=== PATIENT | female | born 1985 | race Two or more races ===

== ENCOUNTER 2018-12-13 16:03 | Emergency (ER) | payer MEDICAID ==
[~2018-12-13] VITALS: Ht 165.1 cm; Wt 59.0 kg
--- NOTE | 2018-12-13 16:39 | NUR ---
ED Nurse Note: Patient walked in c/o left ear pain x 2 weeks rates at 10/10. Pt also reports tinnitus. per pt she had ear surgery 4 years. But has total of 3 ear surgeries
[2018-12-13 16:46] VITALS: BP 149/86
--- NOTE | 2018-12-13 17:11 | Emergency Room Report ---
History of Present Illness General Chief Complaint: Earache Source: Patient Present Illness HPI 33-year-old female presents to the emergency department complaining of 10 out of 10 in severity pain to the left ear that has been progressive over the course of 2 weeks however significant progression of the last 2 days. 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 Patient states that typically she wears her plugged in the shower however lately she hasn't. She denies fevers or chills. Patient reports some dizziness that she describes as imbalance as well as nausea and some ringing in the left ear. Patient denies vertigo or vomiting. she reports external ear tenderness, denies tenderness, pain or warmth behind the affected ear. Denies recent head injury or recent travel. Denies BAIRD or neck pain/stiffness. pt reports some rining in the ear. Allergies: Coded Allergies: No Known Allergies (Unverified , 12/13/18) Patient History Past Medical History: see triage record Past Surgical History: none, other - 4 left ear surgeries, TM removed, Pertinent Family History: none Last Menstrual Period: 10/2018 Now: No - unknown : 3 Para: 2 Nursing Documentation-[facility] Past Medical History: No Stated History Review of Systems All Other Systems: negative except mentioned in HPI Physical Exam Vital Signs Date Time Temp Pulse Resp B/P (MAP) Pulse Ox O2 Delivery O2 Flow Rate FiO2 12/13/18 16:29 99.7 111 18 149/86 99 Sp02 EP Interpretation: reviewed, normal General Appearance: alert, GCS 15, non-toxic, moderate distress Head: normocephalic, atraumatic Eyes: bilateral eye normal inspection, bilateral eye PERRL ENT: hearing grossly normal, normal pharynx, normal voice, other - LEft ear canal is swollen , erythematous and has macerated appearance. no D/c noted, TM not visualized. no mastoid process ttp, erythema or warmth. external ear tenderness with tugging. Right TM and canal are WNL Neck: full range of motion, no meningismus Respiratory: lungs clear, normal breath sounds, speaking full sentences Cardiovascular #1: regular rate, rhythm, tachycardia Genitourinary: normal inspection Musculoskeletal: back normal, gait/station normal, normal range of motion, non- tender Neurologic: alert, oriented x3, responsive, motor strength/tone normal, sensory intact, normal gait, speech normal, other - no nystagmus, cannot illicit dizziness, grossly normal Psychiatric: judgement/insight normal Skin: normal color, no rash, warm/dry, well hydrated Lymphatic: no adenopathy Medical Decision Making PA Attestation Dr. Kowalski is my supervising Physician whom patient management has been discussed with. Diagnostic Impression: Primary Impression: Otitis externa Qualified Codes: H60.502 - Unspecified acute noninfective otitis externa, left ear ER Course 33-year-old female presents to the emergency department complaining of 10 out of 10 in severity pain to the left ear that has been progressive over the course of 2 weeks however significant progression of the last 2 days. 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 Patient states that typically she wears her plugged in the shower however lately she hasn't. She denies fevers or chills. Patient reports some dizziness that she describes as imbalance as well as nausea and some ringing in the left ear. Patient denies vertigo or vomiting. she reports external ear tenderness, denies tenderness, pain or warmth behind the affected ear. Denies recent head injury or recent travel. Denies BAIRD or neck pain/stiffness. pt reports some rining in the ear. Ddx considered but are not limited to OM, OE, mastoiditis, TM perforation, FB, Inner ear infection/ inflammation just to name a few. Vital signs: are WNL, pt. is afebrile, mild tachycardia most likely secondary to pain. pt. appears very uncomfortable. H&PE are most consistent with otitis externa ORDERS: none required at this time, the diagnosis is clinical -OTOSCOPY: Left ear canal is swollen , erythematous and has macerated appearance. no D/c noted, TM not visualized. no mastoid process ttp, erythema or warmth. external ear tenderness with tugging. Right TM and canal are WNL ED INTERVENTIONS: - Tylenol #3 po -Zofran PO D/W this patient as she has history of not having his tympanic membrane in the left ear that she will be prescribed a very specific type of antibiotic eardrops that are known to not have any ototoxicity. When I discussed the name of the eardrops patient stated that it sounds familiar and that she has had them before in the past and the of worked well. Also discussed with this patient the importance of follow-up specifically within ears nose and throat specialist as this is a chronic condition that she has recurrent issues with. DISCHARGE: At this time pt. is stable for d/c to home. With Otic ABX. Will provide printed patient care instructions, and any necessary prescriptions. Care plan and follow up instructions have been discussed with the patient prior to discharge. Last Vital Signs Date Time Temp Pulse Resp B/P (MAP) Pulse Ox O2 Delivery O2 Flow Rate FiO2 12/13/18 16:46 99.7 111 18 149/86 99 Disposition: HOME, SELF-CARE Condition: Stable Scripts Ondansetron Odt* (ZOFRAN ODT*) 4 Mg Tab.rapdis 4 MG BC EVERY 8 HOURS, #9 TAB 0 Refills Prov: Ratna Hill 12/13/18 Acetaminophen With Codeine (T#3) (TYLENOL #3 TAB*) Y Tab 1 TAB ORAL Q6HR PRN for For Pain, #8 TAB Prov: Ratna Hill 12/13/18 Ciprofloxacin Hcl/Dexameth (CIPRODEX OTIC SUSPENSION) 7.5 Ml Drops.susp 4 DROP LEFT EAR TWICE A DAY for 10 Days, #7.5 ML Prov: Ratna Hill 12/13/18 Patient Instructions: Otitis Externa, Cocp-lo-Hsus Additional Instructions: Take medications as directed. Follow up with a Primary Care Provider in 3-5 days For ENT Specialist Referral, even if your symptoms have resolved. --Please review list of primary care clinics, if you do not already have a primary care provider Return sooner to ED if new symptoms occur, or current symptoms become worse. - Please note that this Emergency Department Report was dictated using [employer] manager technology software, occasionally this can lead to erroneous entry secondary to interpretation by the dictation equipment. Ratna Hill Dec 13, 2018 17:11
[2018-12-13] MEDS ORDERED: CIPRODEX OTIC7.5 M1 LEFT EAR (17:14)
[2018-12-13] MEDS ORDERED: ACETAMINOPHEN-1 EAC1 ORAL (17:14)
[2018-12-13] MEDS ORDERED: ONDANSETRON ODT4 MG BC (17:19)
--- NOTE | 2018-12-13 17:25 | NUR ---
ED Nurse Note: pt was cleared for discharge by roni. prescription and discharge instruction explained. pt is aox 4, pt able to verbalize understanding. id band removed. pt able to walk with steady gait. pt left with all belongings. pt will drive her home
[2018-12-13 17:26] VITALS: BP 149/86
[2018-12-13] MEDS ORDERED: Tylenol #3 tab (300mg/30mg) ORAL ONE (17:30)
== END 2018-12-13 17:25 | disposition home or self-care (01) ==
LOC: EMR 17:23
DX: H60.502 Unspecified acute noninfective otitis externa, left ear (principal)
CPT/HCPCS: 99283